=== PATIENT | female | born 1955 | race Caucasian/White ===

== ENCOUNTER 2018-11-03 10:14 | Inpatient (IN) | payer MEDICARE, BC ==
[2018-11-03] MEDS: CEFEPIME 1GM/50 ML (PMX) 50 ML IVPB (11:54)
[2018-11-03] MEDS: SOD CHLORIDE 0.9% 1,000 ML IV (11:54)
[2018-11-03] MEDS: VANCOMYCIN 1 GM (PMX) 250 ML IVPB (12:29)
[2018-11-03 12:37] LABS: ADD MAN DIFF? NO
[2018-11-03 12:42] LABS: BASOPHILS % 0.2 % (0.0-2.0); EOSINOPHILS # 0.2 10^3/ul (0.0-0.5); EOSINOPHILS % 2.4 % (0.0-7.0); HEMATOCRIT 25.7 % (37.0-47.0); HEMOGLOBIN 8.3 g/dl (12.0-16.0); LYMPHOCYTES # 0.8 10^3/ul (0.8-2.9); LYMPHOCYTES % 7.7 % (15.0-51.0); MEAN CORPUSCULAR HGB CONC 32.3 g/dl (32.0-37.0); MEAN CORPUSCULAR VOLUME 99.2 fl (82.0-101.0); MONOCYTE # 0.7 10^3/ul (0.3-0.9); MONOCYTES % 7.1 % (0.0-11.0); NEUTROPHIL # 8.4 10^3/ul (1.6-7.5); NEUTROPHILS % 82.3 % (39.0-77.0); PLATELET COUNT 175 10^3/UL (140-415); RED BLOOD COUNT 2.59 10^6/ul (4.20-5.40)
[2018-11-03 12:42] LABS: WHITE BLOOD COUNT 10.2 10^3/ul (4.8-10.8)
[2018-11-03 12:58] LABS: INR 0.99; PROTIME 13.2 Sec (11.9-14.9)
[2018-11-03] MEDS ORDERED: ACETAMINOPHEN 325 MG TAB PO (13:00)
[2018-11-03] MEDS ORDERED: ONDANSETRON 4 MG INJ IV (13:00)
[2018-11-03 13:01] LABS: ANION GAP 10 (5-13); BLOOD UREA NITROGEN 46 mg/dl (7-20); C-REACTIVE PROTEIN 4.5 mg/dl (0.0-0.9); CALCIUM 8.7 mg/dl (8.4-10.2); CARBON DIOXIDE 15 mmol/L (21-31); CHLORIDE 116 mmol/L (97-110); CREATININE 2.63 mg/dl (0.44-1.00); Estimated GFR 18 mL/min (>60); GLUCOSE 133 mg/dl (70-220); POTASSIUM 4.8 mmol/L (3.5-5.1); SODIUM 141 mmol/L (135-144)
[2018-11-03] MEDS: KETOROLAC 15 MG INJ IV (13:05)
[2018-11-03 13:55] LABS: ERYTHROCYTE SEDIMENTATION RATE 74 mm/Hr (0-30)
[2018-11-03] MEDS ORDERED: GLUCOSE GEL 15 GRAM TUBE BUCCAL (15:30)
[2018-11-03] MEDS ORDERED: NACL 0.9% 3 ML SYG IV (15:30)
[2018-11-03] MEDS ORDERED: DEXTROSE 50% 50 ML SYRINGE IV ×2 (15:30)
[2018-11-03] MEDS ORDERED: VANCOMYCIN IV PER PHARMACY XX (15:30)
[2018-11-03] MEDS ORDERED: GLUCAGON 1 MG INJ IM (15:30)
[2018-11-03] MEDS ORDERED: GLUCOSE GEL 15 GRAM TUBE PO ×2 (15:30)
[2018-11-03 15:44] LABS: IRON 27 ug/dl (35-150)
[2018-11-03 15:54] LABS: % IRON SATURATION 10 % SAT (22-52); TOTAL IRON BINDING CAPACITY 281 ug/dl (241-421)
[2018-11-03 16:20] LABS: FERRITIN 25.8 ng/ml (11.1-264.0)
[2018-11-03] MEDS: CEFTRIAXONE 1 GM/50 ML (PMX) 50 ML IVPB (17:10)
[2018-11-03 17:48] LABS: ADD UMIC YES; UR ASCORBIC ACID NEGATIVE (NEGATIVE); UR BACTERIA FEW /HPF (NONE SEEN); UR BILIRUBIN (Dip) NEGATIVE (NEGATIVE); UR BLOOD (Dip) NEGATIVE (NEGATIVE); UR CLARITY CLEAR (CLEAR); UR COLOR YELLOW (YELLOW); UR GLUCOSE (Dip) 1+ mg/dL (NEGATIVE); UR KETONES (Dip) NEGATIVE (NEGATIVE); UR LEUKOCYTE ESTERASE (Dip) NEGATIVE Leu/ul (NEGATIVE); UR NITRITE (Dip) NEGATIVE (NEGATIVE); UR RBC 1 /HPF (0-5); UR SPECIFIC GRAVITY (Dip) 1.013 (1.003-1.030); UR TOTAL PROTEIN (Dip) 2+ mg/dl (NEGATIVE); UR UROBILINOGEN (Dip) NEGATIVE (NEGATIVE); UR WBC 4 /HPF (0-5)
[2018-11-03 17:54] LABS: CREATININE,URINE RANDOM 54.46 mg/dl (20-320)
[2018-11-03 17:54] LABS: SODIUM,URINE RANDOM 93 mmol/L (30-90)
[2018-11-03] MEDS ORDERED: INSULIN GLARGINE [LANtus] 3 ML PEN SC (21:00)
[2018-11-03] MEDS: INSULIN GLARGINE [LANTus] (100 UNITS/ML) SYG SC (21:15)
[2018-11-03] MEDS: ATORVASTATIN 40 MG TAB PO (21:15)
[2018-11-03] MEDS: AMLODIPINE 10 MG TAB PO (21:47)
[2018-11-03] MEDS: hydrALAzine 20 MG INJ IV (21:48)
[2018-11-03] MEDS: ACETAMINOPHEN 325 MG TAB PO (22:44)
[2018-11-04 06:10] LABS: ADD MAN DIFF? NO
[2018-11-04 06:12] LABS: BASOPHILS % 0.2 % (0.0-2.0); EOSINOPHILS # 0.7 10^3/ul (0.0-0.5); EOSINOPHILS % 8.2 % (0.0-7.0); HEMATOCRIT 22.8 % (37.0-47.0); HEMOGLOBIN 7.3 g/dl (12.0-16.0); LYMPHOCYTES # 1.7 10^3/ul (0.8-2.9); LYMPHOCYTES % 19.8 % (15.0-51.0); MEAN CORPUSCULAR HEMOGLOBIN 32.6 pg (29.0-33.0); MEAN CORPUSCULAR VOLUME 101.8 fl (82.0-101.0); MEAN PLATELET VOLUME 11.3 fl (7.4-10.4); MONOCYTE # 0.8 10^3/ul (0.3-0.9); MONOCYTES % 9.4 % (0.0-11.0); NEUTROPHIL # 5.4 10^3/ul (1.6-7.5); NEUTROPHILS % 61.9 % (39.0-77.0); PLATELET COUNT 155 10^3/UL (140-415); RED BLOOD COUNT 2.24 10^6/ul (4.20-5.40); RED CELL DISTRIBUTION WIDTH 13.1 % (11.5-14.5)
[2018-11-04 06:12] LABS: WHITE BLOOD COUNT 8.7 10^3/ul (4.8-10.8)
[2018-11-04 07:02] LABS: ALANINE AMINOTRANSFERASE 8 IU/L (13-69); ALBUMIN 2.8 g/dl (3.3-4.9); ALBUMIN/GLOBULIN RATIO 1.07; ALKALINE PHOSPHATASE 114 IU/L (42-121); ANION GAP 7 (5-13); ASPARTATE AMINO TRANSFERASE 13 IU/L (15-46); BLOOD UREA NITROGEN 46 mg/dl (7-20); CALCIUM 8.3 mg/dl (8.4-10.2); CARBON DIOXIDE 16 mmol/L (21-31); CHLORIDE 115 mmol/L (97-110); CHOL/HDL RATIO 4.7 RATIO; CHOLESTEROL 257 mg/dl (100-200); CREATININE 3.02 mg/dl (0.44-1.00); Estimated GFR 16 mL/min (>60); GLUCOSE 96 mg/dl (70-220); HDL CHOLESTEROL 54 mg/dl (35-98); LDL CHOLESTEROL,CALCULATED 155 mg/dl; MAGNESIUM 2.4 mg/dl (1.7-2.5); SODIUM 138 mmol/L (135-144); TOTAL PROTEIN 5.4 g/dl (6.1-8.1); TRIGLYCERIDES 238 mg/dl (0-149)
[2018-11-04 08:13] LABS: HEMOGLOBIN A1C 6.5 % (0-5.9)
[2018-11-04] MEDS: AMLODIPINE 10 MG TAB PO ×2 (08:28)
[2018-11-04] MEDS: SODIUM HYPOCHLORITE (1/40) 1 APPLIC BTL IRR (08:34)
[2018-11-04] MEDS ORDERED: LISINOPRIL 20 MG TAB PO (09:00)
[2018-11-04] MEDS: CEFTRIAXONE 1 GM/50 ML (PMX) 50 ML IVPB (15:11)
[2018-11-04] MEDS: INSULIN ASPART [NOVOLOG] 3 ML PEN SC ×2 (17:39→20:35)
[2018-11-04] MEDS: ATORVASTATIN 40 MG TAB PO (20:33)
[2018-11-04] MEDS: INSULIN GLARGINE [LANTus] (100 UNITS/ML) SYG SC (20:35)
[2018-11-04 21:08] LABS: SODIUM,URINE RANDOM 77 mmol/L (30-90)
[2018-11-04 21:12] LABS: CREATININE,URINE RANDOM 62.94 mg/dl (20-320)
[2018-11-04 21:19] LABS: PROTEIN/CREAT RATIO 5.64 RATIO
[2018-11-05] MEDS: ACCU-CHEK XX (01:32)
[2018-11-05 05:26] LABS: ADD MAN DIFF? NO
[2018-11-05 05:35] LABS: BASOPHILS % 0.3 % (0.0-2.0); EOSINOPHILS # 0.8 10^3/ul (0.0-0.5); EOSINOPHILS % 12.9 % (0.0-7.0); HEMATOCRIT 23.2 % (37.0-47.0); HEMOGLOBIN 7.6 g/dl (12.0-16.0); LYMPHOCYTES # 1.5 10^3/ul (0.8-2.9); LYMPHOCYTES % 22.6 % (15.0-51.0); MEAN CORPUSCULAR HEMOGLOBIN 32.8 pg (29.0-33.0); MEAN CORPUSCULAR HGB CONC 32.8 g/dl (32.0-37.0); MEAN PLATELET VOLUME 11.1 fl (7.4-10.4); MONOCYTE # 0.6 10^3/ul (0.3-0.9); MONOCYTES % 9.5 % (0.0-11.0); NEUTROPHIL # 3.5 10^3/ul (1.6-7.5); NEUTROPHILS % 54.5 % (39.0-77.0); PLATELET COUNT 170 10^3/UL (140-415); RED BLOOD COUNT 2.32 10^6/ul (4.20-5.40); RED CELL DISTRIBUTION WIDTH 12.6 % (11.5-14.5)
[2018-11-05 05:35] LABS: WHITE BLOOD COUNT 6.5 10^3/ul (4.8-10.8)
[2018-11-05 05:52] LABS: INR 1.03; PARTIAL THROMBOPLASTIN TIME 32.9 Sec (23.0-35.0); PROTIME 13.6 Sec (11.9-14.9); PT RATIO 1.1
[2018-11-05 05:58] LABS: PHOSPHORUS 5.4 mg/dl (2.5-4.9)
[2018-11-05 05:58] LABS: MAGNESIUM 2.5 mg/dl (1.7-2.5)
[2018-11-05 06:00] LABS: VANCOMYCIN,RANDOM 8.7 ug/ml
[2018-11-05 06:10] LABS: URIC ACID 5.6 mg/dl (3.1-7.9)
[2018-11-05 06:10] LABS: CREATINE KINASE 42 IU/L (23-200)
[2018-11-05 06:21] LABS: ALANINE AMINOTRANSFERASE 12 IU/L (13-69); ALBUMIN 2.8 g/dl (3.3-4.9); ALBUMIN/GLOBULIN RATIO 0.93; ALKALINE PHOSPHATASE 107 IU/L (42-121); ANION GAP 5 (5-13); ASPARTATE AMINO TRANSFERASE 13 IU/L (15-46); BLOOD UREA NITROGEN 46 mg/dl (7-20); CALCIUM 8.5 mg/dl (8.4-10.2); CARBON DIOXIDE 17 mmol/L (21-31); CHLORIDE 119 mmol/L (97-110); CREATININE 3.38 mg/dl (0.44-1.00); Estimated GFR 14 mL/min (>60); GLUCOSE 82 mg/dl (70-220); POTASSIUM 5.4 mmol/L (3.5-5.1); SODIUM 141 mmol/L (135-144); TOTAL PROTEIN 5.8 g/dl (6.1-8.1)
[2018-11-05] MEDS: INSULIN ASPART [NOVOLOG] 3 ML PEN SC ×4 (08:00→21:00)
[2018-11-05] MEDS: AMLODIPINE 10 MG TAB PO (08:28)
[2018-11-05] MEDS: SODIUM HYPOCHLORITE (1/40) 1 APPLIC BTL IRR (09:00)
[2018-11-05] MEDS: VANCOMYCIN 1 GM 250 ML IVPB (12:36)
[2018-11-05] MEDS: CITRIC ACID/NA CITRATE 30 ML CUP PO ×3 (13:47→23:47)
[2018-11-05] MEDS: SODIUM POLYSTYRENE 15 GM KIT (POWDER + SORBITOL) PO (13:47)
[2018-11-05] MEDS: CEFTRIAXONE 1 GM/50 ML (PMX) 50 ML IVPB (15:31)
[2018-11-05] MEDS: POLYMYXIN/BACITRACIN 1L IRRIG IRR (19:26)
[2018-11-05] MEDS ORDERED: ONDANSETRON 4 MG INJ IV (19:30)
[2018-11-05] MEDS ORDERED: MEPERIDINE 25 MG INJ IV (19:30)
[2018-11-05] MEDS ORDERED: HYDROmorphONE 1 MG/5 ML IV SYRINGE IV ×3 (19:30)
[2018-11-05] MEDS ORDERED: DIPHENHYDRAMINE 50 MG INJ IV (19:30)
[2018-11-05] MEDS ORDERED: FENTAnyl 50 MCG/ML VIAL IV (19:30)
[2018-11-05] MEDS ORDERED: PROCHLORPERAZINE 10 MG INJ IV (19:30)
[2018-11-05] MEDS: ATORVASTATIN 40 MG TAB PO ×2 (21:00→23:47)
[2018-11-05] MEDS: INSULIN GLARGINE [LANTus] (100 UNITS/ML) SYG SC ×2 (21:00→23:48)
[2018-11-05] MEDS ORDERED: PROPOFOL 20 ML (21:40)
[2018-11-05] MEDS ORDERED: LIDOCAINE 2% (SDV) 5 ML INJ (21:40)
[2018-11-05] MEDS ORDERED: MIDAZOLAM 1 MG/ML 2 ML INJ (21:41)
[2018-11-05] MEDS ORDERED: FENTAnyl 50 MCG/ML VIAL (21:41)
[2018-11-05] MEDS ORDERED: ONDANSETRON 4 MG INJ (21:57)
[2018-11-05] MEDS ORDERED: METOCLOPRAMIDE 10 MG INJ (21:57)
[2018-11-05] MEDS ORDERED: FAMOTIDINE 20 MG INJ (21:57)
[2018-11-05] MEDS: BUPIVACAINE 0.5% (SDV) 30 ML INJ (22:16)
[2018-11-05] MEDS: LIDOCAINE 1% (MPF) 30 ML INJ (22:17)
[2018-11-06] MEDS: ACCU-CHEK XX (01:22)
[2018-11-06] MEDS: ACETAMINOPHEN 325 MG TAB PO (05:43)
[2018-11-06 06:24] LABS: ADD MAN DIFF? NO
[2018-11-06 06:25] LABS: WHITE BLOOD COUNT 5.7 10^3/ul (4.8-10.8)
[2018-11-06 06:25] LABS: BASOPHILS % 0.4 % (0.0-2.0); EOSINOPHILS # 0.8 10^3/ul (0.0-0.5); EOSINOPHILS % 14.8 % (0.0-7.0); HEMATOCRIT 25.1 % (37.0-47.0); HEMOGLOBIN 8.1 g/dl (12.0-16.0); LYMPHOCYTES # 1.2 10^3/ul (0.8-2.9); LYMPHOCYTES % 21.1 % (15.0-51.0); MEAN CORPUSCULAR HEMOGLOBIN 32.1 pg (29.0-33.0); MEAN CORPUSCULAR HGB CONC 32.3 g/dl (32.0-37.0); MEAN CORPUSCULAR VOLUME 99.6 fl (82.0-101.0); MEAN PLATELET VOLUME 10.7 fl (7.4-10.4); MONOCYTE # 0.5 10^3/ul (0.3-0.9); MONOCYTES % 8.6 % (0.0-11.0); NEUTROPHIL # 3.1 10^3/ul (1.6-7.5); NEUTROPHILS % 54.6 % (39.0-77.0); PLATELET COUNT 178 10^3/UL (140-415); RED BLOOD COUNT 2.52 10^6/ul (4.20-5.40); RED CELL DISTRIBUTION WIDTH 12.6 % (11.5-14.5)
[2018-11-06 06:47] LABS: PHOSPHORUS 6.3 mg/dl (2.5-4.9)
[2018-11-06 06:47] LABS: MAGNESIUM 2.4 mg/dl (1.7-2.5)
[2018-11-06 06:55] LABS: ANION GAP 9 (5-13); BLOOD UREA NITROGEN 51 mg/dl (7-20); CALCIUM 8.4 mg/dl (8.4-10.2); CARBON DIOXIDE 19 mmol/L (21-31); CHLORIDE 114 mmol/L (97-110); CREATININE 2.97 mg/dl (0.44-1.00); Estimated GFR 16 mL/min (>60); GLUCOSE 99 mg/dl (70-220); POTASSIUM 4.5 mmol/L (3.5-5.1); SODIUM 142 mmol/L (135-144)
[2018-11-06] MEDS: INSULIN ASPART [NOVOLOG] 3 ML PEN SC ×4 (08:00→21:00)
[2018-11-06] MEDS: CITRIC ACID/NA CITRATE 30 ML CUP PO ×3 (08:54→21:22)
[2018-11-06] MEDS: AMLODIPINE 10 MG TAB PO (08:54)
[2018-11-06] MEDS: SODIUM HYPOCHLORITE (1/40) 1 APPLIC BTL IRR (08:55)
[2018-11-06] MEDS: LIDOCAINE 1% (MPF) 5 ML VIAL SC (15:30)
[2018-11-06] MEDS: CEFTRIAXONE 1 GM/50 ML (PMX) 50 ML IVPB (17:23)
[2018-11-06 21:03] LABS: PTH CALCIUM 7.9 mg/dL (8.6-10.4)
[2018-11-06] MEDS: ATORVASTATIN 40 MG TAB PO (21:22)
[2018-11-06] MEDS: INSULIN GLARGINE [LANTus] (100 UNITS/ML) SYG SC (21:22)
[2018-11-07] MEDS: ACCU-CHEK XX (02:00)
[2018-11-07 07:11] LABS: ADD MAN DIFF? NO
[2018-11-07 07:20] LABS: WHITE BLOOD COUNT 5.7 10^3/ul (4.8-10.8)
[2018-11-07 07:20] LABS: BASOPHILS % 0.5 % (0.0-2.0); EOSINOPHILS # 0.9 10^3/ul (0.0-0.5); EOSINOPHILS % 15.9 % (0.0-7.0); HEMATOCRIT 22.7 % (37.0-47.0); HEMOGLOBIN 7.4 g/dl (12.0-16.0); LYMPHOCYTES # 1.5 10^3/ul (0.8-2.9); LYMPHOCYTES % 26.7 % (15.0-51.0); MEAN CORPUSCULAR HEMOGLOBIN 32.2 pg (29.0-33.0); MEAN CORPUSCULAR HGB CONC 32.6 g/dl (32.0-37.0); MEAN CORPUSCULAR VOLUME 98.7 fl (82.0-101.0); MEAN PLATELET VOLUME 11.1 fl (7.4-10.4); MONOCYTE # 0.5 10^3/ul (0.3-0.9); MONOCYTES % 9.4 % (0.0-11.0); NEUTROPHIL # 2.7 10^3/ul (1.6-7.5); NEUTROPHILS % 46.8 % (39.0-77.0); PLATELET COUNT 184 10^3/UL (140-415); RED CELL DISTRIBUTION WIDTH 12.5 % (11.5-14.5)
[2018-11-07 07:47] LABS: ANION GAP 6 (5-13); BLOOD UREA NITROGEN 51 mg/dl (7-20); CALCIUM 8.3 mg/dl (8.4-10.2); CARBON DIOXIDE 22 mmol/L (21-31); CHLORIDE 112 mmol/L (97-110); CREATININE 3.01 mg/dl (0.44-1.00); Estimated GFR 16 mL/min (>60); GLUCOSE 94 mg/dl (70-220); POTASSIUM 4.4 mmol/L (3.5-5.1); SODIUM 140 mmol/L (135-144)
[2018-11-07 07:51] LABS: PTH INTACT 150 pg/mL (14-64)
[2018-11-07] MEDS: INSULIN ASPART [NOVOLOG] 3 ML PEN SC ×3 (08:00→17:34)
[2018-11-07] MEDS: CITRIC ACID/NA CITRATE 30 ML CUP PO ×2 (08:15→12:15)
[2018-11-07] MEDS: SODIUM HYPOCHLORITE (1/40) 1 APPLIC BTL IRR (08:16)
[2018-11-07] MEDS: AMLODIPINE 10 MG TAB PO (08:16)
[2018-11-07 11:00] LABS: HEMATOCRIT 24.5 % (37.0-47.0); HEMOGLOBIN 7.9 g/dl (12.0-16.0)
[2018-11-07] MEDS: LEVOFLOXACIN 500 MG TAB PO (12:01)
[2018-11-07] MEDS: VANCOMYCIN 1 GM 250 ML IVPB (12:02)
== END 2018-11-07 19:00 | disposition home health service (06) | DRG 579 ==
LOC: E/R 10:14 → PP2 12:54
PROC: 0JQQ0ZZ Repair Right Foot Subcutaneous Tissue and Fascia, Open Approach (ICD-10-PCS; principal; 2018-11-05 19:30)
PROC: 0QBQ0ZZ Excision of Right Toe Phalanx, Open Approach (ICD-10-PCS; 2018-11-05 19:30)
DX: L03.115 Cellulitis of right lower limb (principal); N17.0 Acute kidney failure with tubular necrosis; M86.8X7 Other osteomyelitis, ankle and foot; E87.2 Acidosis; L02.611 Cutaneous abscess of right foot; E11.621 Type 2 diabetes mellitus with foot ulcer; E11.69 Type 2 diabetes mellitus with other specified complication; L97.511 Non-pressure chronic ulcer of other part of right foot limited to breakdown of skin; E78.5 Hyperlipidemia, unspecified; D64.9 Anemia, unspecified; E11.40 Type 2 diabetes mellitus with diabetic neuropathy, unspecified; I12.9 Hypertensive chronic kidney disease with stage 1 through stage 4 chronic kidney disease, or unspecified chronic kidney disease; N18.9 Chronic kidney disease, unspecified; L03.031 Cellulitis of right toe; B95.8 Unspecified staphylococcus as the cause of diseases classified elsewhere; B96.20 Unspecified Escherichia coli [E. coli] as the cause of diseases classified elsewhere; B95.2 Enterococcus as the cause of diseases classified elsewhere; B95.7 Other staphylococcus as the cause of diseases classified elsewhere
CPT/HCPCS: 36415; 36569; 71045; 73630; 73718; 76775; 76937; 80048; 80053; 80061; 80202; 81001; 81003; 82306; 82540; 82550; 82570; 82728; 82962; 83036; 83540; 83735; 83970; 84100; 84155; 84300; 84560; 85014; 85018; 85025; 85610; 85651; 85730; 86140; 86850; 86900; 86901; 87040; 87070; 87102; 88304; 88311; 89190; 93005; 93923; 96365; 99285-25

== ENCOUNTER 2018-11-20 10:04 | Inpatient (IN) | payer MEDICARE, MEDICAID ==
[2018-11-20] MEDS: CEFEPIME 1GM/50 ML (PMX) 50 ML IVPB (11:03)
[2018-11-20 11:05] LABS: ADD MAN DIFF? NO
[2018-11-20 11:10] LABS: WHITE BLOOD COUNT 6.4 10^3/ul (4.8-10.8)
[2018-11-20 11:10] LABS: ABNORMAL IP MESSAGE 1; BASOPHILS % 0.2 % (0.0-2.0); EOSINOPHILS # 0.1 10^3/ul (0.0-0.5); EOSINOPHILS % 1.6 % (0.0-7.0); LYMPHOCYTES # 0.5 10^3/ul (0.8-2.9); LYMPHOCYTES % 8.3 % (15.0-51.0); MEAN CORPUSCULAR HEMOGLOBIN 31.5 pg (29.0-33.0); MEAN CORPUSCULAR HGB CONC 31.5 g/dl (32.0-37.0); MEAN PLATELET VOLUME 11.2 fl (7.4-10.4); MONOCYTE # 0.5 10^3/ul (0.3-0.9); MONOCYTES % 7.4 % (0.0-11.0); NEUTROPHIL # 5.2 10^3/ul (1.6-7.5); NEUTROPHILS % 81.9 % (39.0-77.0); PLATELET COUNT 158 10^3/UL (140-415); RED CELL DISTRIBUTION WIDTH 12.7 % (11.5-14.5)
[2018-11-20 11:18] LABS: POSITIVE DIFF @See below
[2018-11-20 11:19] LABS: HEMOGLOBIN 6.3 g/dl (12.0-16.0)
[2018-11-20 11:20] LABS: PATH REVIEW? YES
[2018-11-20 11:30] LABS: ALANINE AMINOTRANSFERASE 29 IU/L (13-69); ALBUMIN 3.3 g/dl (3.3-4.9); ALKALINE PHOSPHATASE 159 IU/L (42-121); ANION GAP 12 (5-13); ASPARTATE AMINO TRANSFERASE 25 IU/L (15-46); BILIRUBIN,INDIRECT 0.1 mg/dl (0-1.1); BILIRUBIN,TOTAL 0.1 mg/dl (0.2-1.3); BLOOD UREA NITROGEN 46 mg/dl (7-20); CALCIUM 8.3 mg/dl (8.4-10.2); CARBON DIOXIDE 17 mmol/L (21-31); CHLORIDE 111 mmol/L (97-110); CREATININE 3.41 mg/dl (0.44-1.00); Estimated GFR 14 mL/min (>60); GLUCOSE 192 mg/dl (70-220); POTASSIUM 4.7 mmol/L (3.5-5.1); SODIUM 140 mmol/L (135-144); TOTAL PROTEIN 6.3 g/dl (6.1-8.1)
[2018-11-20] MEDS: HYDROCODONE/APAP (10/325) TAB PO (11:38)
[2018-11-20] MEDS: VANCOMYCIN 1 GM (PMX) 250 ML IVPB (11:39)
[2018-11-20 11:42] LABS: TROPONIN-I 0.088 ng/ml (0.000-0.120)
[2018-11-20 11:47] LABS: INR 1.06; PROTIME 13.9 Sec (11.9-14.9); PT RATIO 1.1
[2018-11-20 11:48] LABS: PARTIAL THROMBOPLASTIN TIME 38.4 Sec (23.0-35.0)
[2018-11-20 11:50] LABS: D-DIMER 2024.68 ng/ml (<460)
[2018-11-20 11:55] LABS: BAND NEUTROPHILS #M 0.1 10^3/ul (0.0-0.6); BAND NEUTROPHILS % (M) 2 % (0-4); EOSINOPHILS % (M) 1 % (0-7); GIANT THROMBO% (M) 1 % (0-0); HYPOCHROMASIA 1+ (0-0); LYMPHOCYTES #M 0.5 10^3/ul (0.8-2.9); LYMPHOCYTES % (M) 9 % (15-51); MONOCYTE #M 0.1 10^3/ul (0.3-0.9); MONOCYTES % (M) 2 % (0-11); PLATELET ESTIMATE NORMAL; POIKILOCYTOSIS 1+ (0-0); POLYCHROMASIA 1+ (0-0); SEG NEUT #M 5.5 10^3/ul (1.6-7.5); SEGMENTED NEUTROPHILS (M) % 86 % (39-77)
[2018-11-20 12:25] LABS: AADO2 Arterial 199.3 mmHg (7.0-24.0); Arterial Base Excess -8.9 mmol/L (-3.0-3); Arterial Blood Gas Oxygen Sat 62.6 mmHG (95.0-98.0); Arterial COHb 0.5 % (0.0-3.0); Arterial HCO3 16.9 mmol/L (22.0-26.0); Arterial MetHb 0.5 % (0.0-1.5); Arterial pCO2 36.2 mmhg (35-45); MODE NASAL CANNULA; Site LB
[2018-11-20 12:30] LABS: B-TYPE NATRIURETIC PEPTIDE 9030 PG/ML (0-125)
[2018-11-20] MEDS ORDERED: GUAIFENESIN/CODEINE 5ML CUP PO (12:30)
[2018-11-20] MEDS ORDERED: morphine 2 MG INJ IV (12:30)
[2018-11-20] MEDS ORDERED: NACL 0.9% 3 ML SYG IV (12:30)
[2018-11-20] MEDS ORDERED: VANCOMYCIN IV PER PHARMACY XX (12:30)
[2018-11-20] MEDS ORDERED: ACETAMINOPHEN 325 MG TAB PO ×2 (12:30→13:30)
[2018-11-20] MEDS ORDERED: ALBUTEROL/IPRATROPIUM (NEB) 3 ML AMP HHN (12:30)
[2018-11-20] MEDS ORDERED: GLUCOSE GEL 15 GRAM TUBE BUCCAL (13:30)
[2018-11-20] MEDS ORDERED: GLUCOSE GEL 15 GRAM TUBE PO ×2 (13:30)
[2018-11-20] MEDS ORDERED: GLUCAGON 1 MG INJ IM (13:30)
[2018-11-20] MEDS ORDERED: DEXTROSE 50% 50 ML SYRINGE IV ×2 (13:30)
[2018-11-20] MEDS ORDERED: ONDANSETRON 4 MG INJ IV (13:30)
[2018-11-20 13:33] LABS: RETICULOCYTE COUNT # 0.031 X10^6 (0.020-0.110); RETICULOCYTE COUNT % 1.6 % (0.5-1.5)
[2018-11-20] MEDS: METHYLPREDNISOLONE 125 MG INJ IV (13:42)
[2018-11-20] MEDS: PIPER-TAZO 3.375 GM IV (PMX) 100 ML IVPB (13:42)
[2018-11-20] MEDS: FUROSEMIDE 20 MG INJ IV ×2 (15:36→17:23)
[2018-11-20] MEDS: INSULIN ASPART [NOVOLOG] 3 ML PEN SC ×2 (17:25→23:18)
[2018-11-20 18:05] LABS: LACTATE DEHYDROGENASE 643 IU/L (313-618)
[2018-11-20 18:05] LABS: IRON 27 ug/dl (35-150)
[2018-11-20 18:06] LABS: LACTIC ACID 0.8 mmol/L (0.5-2.0)
[2018-11-20 18:14] LABS: % IRON SATURATION 10 % SAT (22-52); TOTAL IRON BINDING CAPACITY 271 ug/dl (241-421)
[2018-11-20] MEDS: ALBUTEROL/IPRATROPIUM (NEB) 3 ML AMP HHN ×2 (19:42→19:43)
[2018-11-20] MEDS: BUDESONIDE (NEB) 0.5MG/2ML AMP HHN (19:43)
[2018-11-20] MEDS: ATORVASTATIN 40 MG TAB PO (20:59)
[2018-11-20] MEDS: METHYLPREDNISOLONE 40 MG INJ IV (20:59)
[2018-11-20] MEDS ORDERED: METHYLPREDNISOLONE 40 MG INJ IV (21:00)
[2018-11-20] MEDS: INSULIN GLARGINE [LANTus] (100 UNITS/ML) SYG SC (21:06)
[2018-11-20] MEDS: SOD CHLORIDE 0.9% 0 ML IV (22:45)
[2018-11-20] MEDS: PIPER-TAZO 2.25 GM (PMX) 50 ML IVPB (23:10)
[2018-11-20 23:36] LABS: IMMEDIATE SPIN CROSSMATCH 1 2
[2018-11-21] MEDS: HYDROCODONE/APAP (5/325) TAB PO ×2 (02:37→23:02)
[2018-11-21] MEDS: ACCU-CHEK XX (02:38)
[2018-11-21 02:57] LABS: ADD UMIC YES; UR ASCORBIC ACID NEGATIVE (NEGATIVE); UR BACTERIA FEW /HPF (NONE SEEN); UR BILIRUBIN (Dip) NEGATIVE (NEGATIVE); UR BLOOD (Dip) NEGATIVE (NEGATIVE); UR CLARITY CLOUDY (CLEAR); UR COLOR YELLOW (YELLOW); UR GLUCOSE (Dip) 1+ mg/dL (NEGATIVE); UR KETONES (Dip) NEGATIVE (NEGATIVE); UR LEUKOCYTE ESTERASE (Dip) NEGATIVE Leu/ul (NEGATIVE); UR NITRITE (Dip) NEGATIVE (NEGATIVE); UR RBC 0 /HPF (0-5); UR SPECIFIC GRAVITY (Dip) 1.012 (1.003-1.030); UR SQUAMOUS EPITHELIAL CELL FEW /HPF (FEW); UR TOTAL PROTEIN (Dip) 2+ mg/dl (NEGATIVE); UR UROBILINOGEN (Dip) NEGATIVE (NEGATIVE); UR WBC 1 /HPF (0-5)
[2018-11-21 03:01] LABS: SODIUM,URINE RANDOM 71 mmol/L (30-90)
[2018-11-21 03:03] LABS: CREATININE,URINE RANDOM 63.47 mg/dl (20-320)
[2018-11-21 03:16] LABS: PROTEIN/CREAT RATIO 4.15 RATIO
[2018-11-21] MEDS: INSULIN ASPART [NOVOLOG] 3 ML PEN SC ×5 (04:24→21:55)
[2018-11-21] MEDS: PIPER-TAZO 2.25 GM (PMX) 50 ML IVPB ×3 (05:03→22:40)
[2018-11-21] MEDS: FUROSEMIDE 20 MG INJ IV ×2 (05:04→17:25)
[2018-11-21 05:59] LABS: ADD MAN DIFF? NO
[2018-11-21 06:11] LABS: ABNORMAL IP MESSAGE 1; BASOPHILS % 0.2 % (0.0-2.0); HEMATOCRIT 26.3 % (37.0-47.0); HEMOGLOBIN 8.5 g/dl (12.0-16.0); LYMPHOCYTES # 0.3 10^3/ul (0.8-2.9); LYMPHOCYTES % 2.4 % (15.0-51.0); MEAN CORPUSCULAR HGB CONC 32.3 g/dl (32.0-37.0); MEAN PLATELET VOLUME 11.4 fl (7.4-10.4); MONOCYTE # 0.4 10^3/ul (0.3-0.9); MONOCYTES % 3.3 % (0.0-11.0); NEUTROPHIL # 10.6 10^3/ul (1.6-7.5); NEUTROPHILS % 93.5 % (39.0-77.0); PLATELET COUNT 149 10^3/UL (140-415); RED BLOOD COUNT 2.74 10^6/ul (4.20-5.40); RED CELL DISTRIBUTION WIDTH 13.4 % (11.5-14.5)
[2018-11-21 06:11] LABS: WHITE BLOOD COUNT 11.4 10^3/ul (4.8-10.8)
[2018-11-21 06:19] LABS: POSITIVE DIFF @See below
[2018-11-21 06:30] LABS: HEMOGLOBIN A1C 6.1 % (0-5.9)
[2018-11-21 07:39] LABS: ALANINE AMINOTRANSFERASE 23 IU/L (13-69); ALBUMIN 3.3 g/dl (3.3-4.9); ALKALINE PHOSPHATASE 133 IU/L (42-121); ANION GAP 13 (5-13); ASPARTATE AMINO TRANSFERASE 24 IU/L (15-46); BLOOD UREA NITROGEN 52 mg/dl (7-20); CALCIUM 8.7 mg/dl (8.4-10.2); CARBON DIOXIDE 16 mmol/L (21-31); CHLORIDE 109 mmol/L (97-110); CREATININE 3.72 mg/dl (0.44-1.00); Estimated GFR 12 mL/min (>60); GLUCOSE 242 mg/dl (70-220); MAGNESIUM 2.2 mg/dl (1.7-2.5); POTASSIUM 4.7 mmol/L (3.5-5.1); SODIUM 138 mmol/L (135-144); TOTAL PROTEIN 6.3 g/dl (6.1-8.1)
[2018-11-21] MEDS: ALBUTEROL/IPRATROPIUM (NEB) 3 ML AMP HHN ×3 (07:45→19:29)
[2018-11-21] MEDS: BUDESONIDE (NEB) 0.5MG/2ML AMP HHN ×2 (07:46→19:30)
[2018-11-21 08:37] LABS: AADO2 Arterial 359.3 mmHg (7.0-24.0); Arterial Base Excess -9.1 mmol/L (-3.0-3); Arterial Blood Gas Oxygen Sat 93.1 mmHG (95.0-98.0); Arterial COHb 0.3 % (0.0-3.0); Arterial Fraction of Oxyhgb 92.7 % (93.0-99.0); Arterial HCO3 15.6 mmol/L (22.0-26.0); Arterial MetHb 0.1 % (0.0-1.5); Arterial pCO2 29.5 mmhg (35-45); MODE HFNC; Site LB
[2018-11-21] MEDS: METHYLPREDNISOLONE 40 MG INJ IV ×2 (08:46→21:21)
[2018-11-21] MEDS: AMLODIPINE 10 MG TAB PO (08:47)
[2018-11-21 09:09] LABS: LACTIC ACID 1.3 mmol/L (0.5-2.0)
[2018-11-21 09:25] LABS: BILIRUBIN,INDIRECT 0.1 mg/dl (0-1.1); BILIRUBIN,TOTAL 0.1 mg/dl (0.2-1.3)
[2018-11-21] MEDS: CITRIC ACID/NA CITRATE 30 ML CUP PO ×2 (10:44→21:20)
[2018-11-21] MEDS: ONDANSETRON 4 MG INJ IV (11:22)
[2018-11-21 11:39] LABS: VANCOMYCIN,RANDOM 31.1 ug/ml
[2018-11-21] MEDS: FERROUS SULFATE (EC) 325 MG TAB PO ×2 (12:44→21:20)
[2018-11-21] MEDS: DOCUSATE SODIUM 100 MG CAP PO ×2 (12:44→21:21)
[2018-11-21] MEDS: ATORVASTATIN 40 MG TAB PO (21:20)
[2018-11-21] MEDS: ZYVOX 600 MG TAB PO (21:20)
[2018-11-21] MEDS: MEROPENEM 500MG/50 ML (PMX) 50 ML IVPB (21:21)
[2018-11-21] MEDS: INSULIN GLARGINE [LANTus] (100 UNITS/ML) SYG SC (21:55)
[2018-11-21] MEDS ORDERED: VANCOMYCIN 1 GM in 250 ML IVPB (23:00)
[2018-11-22] MEDS: ACCU-CHEK XX (02:40)
[2018-11-22] MEDS: PIPER-TAZO 2.25 GM (PMX) 50 ML IVPB ×2 (05:31→14:38)
[2018-11-22] MEDS: FUROSEMIDE 20 MG INJ IV (05:31)
[2018-11-22 06:21] LABS: ADD MAN DIFF? NO
[2018-11-22 06:26] LABS: ABNORMAL IP MESSAGE 1; BASOPHILS % 0.2 % (0.0-2.0); HEMATOCRIT 26.4 % (37.0-47.0); HEMOGLOBIN 8.6 g/dl (12.0-16.0); LYMPHOCYTES # 0.5 10^3/ul (0.8-2.9); LYMPHOCYTES % 4.5 % (15.0-51.0); MEAN CORPUSCULAR HEMOGLOBIN 30.9 pg (29.0-33.0); MEAN CORPUSCULAR HGB CONC 32.6 g/dl (32.0-37.0); MEAN PLATELET VOLUME 11.1 fl (7.4-10.4); MONOCYTE # 0.2 10^3/ul (0.3-0.9); NEUTROPHIL # 10.4 10^3/ul (1.6-7.5); NEUTROPHILS % 92.4 % (39.0-77.0); PLATELET COUNT 167 10^3/UL (140-415); RED BLOOD COUNT 2.78 10^6/ul (4.20-5.40); RED CELL DISTRIBUTION WIDTH 13.4 % (11.5-14.5)
[2018-11-22 06:26] LABS: WHITE BLOOD COUNT 11.2 10^3/ul (4.8-10.8)
[2018-11-22 06:27] LABS: POSITIVE DIFF @See below
[2018-11-22 06:44] LABS: ANION GAP 13 (5-13); BLOOD UREA NITROGEN 65 mg/dl (7-20); CALCIUM 8.4 mg/dl (8.4-10.2); CARBON DIOXIDE 19 mmol/L (21-31); CHLORIDE 107 mmol/L (97-110); CREATININE 4.22 mg/dl (0.44-1.00); Estimated GFR 11 mL/min (>60); GLUCOSE 186 mg/dl (70-220); MAGNESIUM 2.3 mg/dl (1.7-2.5); PHOSPHORUS 6.7 mg/dl (2.5-4.9); SODIUM 139 mmol/L (135-144)
[2018-11-22] MEDS: INSULIN ASPART [NOVOLOG] 3 ML PEN SC ×5 (07:25→21:01)
[2018-11-22] MEDS: ALBUTEROL/IPRATROPIUM (NEB) 3 ML AMP HHN ×3 (08:10→20:31)
[2018-11-22] MEDS: FERROUS SULFATE (EC) 325 MG TAB PO ×2 (08:54→20:50)
[2018-11-22] MEDS: AMLODIPINE 10 MG TAB PO (08:55)
[2018-11-22] MEDS: DOCUSATE SODIUM 100 MG CAP PO ×2 (08:55→20:50)
[2018-11-22] MEDS: ZYVOX 600 MG TAB PO ×2 (08:55→20:50)
[2018-11-22] MEDS: CITRIC ACID/NA CITRATE 30 ML CUP PO ×2 (08:57→20:50)
[2018-11-22] MEDS: METHYLPREDNISOLONE 40 MG INJ IV (08:58)
[2018-11-22] MEDS: MEROPENEM 500MG/50 ML (PMX) 50 ML IVPB ×2 (09:01→22:39)
[2018-11-22 10:22] LABS: HAPTOGLOBIN 322 mg/dL (43-212)
[2018-11-22] MEDS: BUDESONIDE (NEB) 0.5MG/2ML AMP HHN ×2 (10:28→20:31)
[2018-11-22] MEDS: ALBUMIN HUMAN 25% 100 ML IV (10:53)
[2018-11-22 11:08] LABS: NIL 0.01 IU/mL; QUANTIFERON(R)-TB GOLD INDETERMINATE (NEGATIVE)
[2018-11-22] MEDS: INSULIN GLARGINE [LANTus] (100 UNITS/ML) SYG SC ×2 (11:46→21:01)
[2018-11-22 12:43] LABS: MYELOPEROXIDASE ANTIBODY <1.0 AI; PROTEINASE-3 ANTIBODY <1.0 AI
[2018-11-22 13:27] LABS: ANA SCREEN NEGATIVE (NEGATIVE)
[2018-11-22 14:17] LABS: ANCA SCREEN NEGATIVE (NEGATIVE)
[2018-11-22] MEDS: ATORVASTATIN 40 MG TAB PO (20:50)
[2018-11-23] MEDS: ACCU-CHEK XX (02:38)
[2018-11-23 05:40] LABS: ADD MAN DIFF? NO
[2018-11-23 05:43] LABS: BASOPHILS % 0.1 % (0.0-2.0); HEMATOCRIT 26.4 % (37.0-47.0); HEMOGLOBIN 8.6 g/dl (12.0-16.0); LYMPHOCYTES # 1.3 10^3/ul (0.8-2.9); LYMPHOCYTES % 10.6 % (15.0-51.0); MEAN CORPUSCULAR HEMOGLOBIN 30.4 pg (29.0-33.0); MEAN CORPUSCULAR HGB CONC 32.6 g/dl (32.0-37.0); MEAN CORPUSCULAR VOLUME 93.3 fl (82.0-101.0); MEAN PLATELET VOLUME 10.7 fl (7.4-10.4); MONOCYTE # 0.9 10^3/ul (0.3-0.9); MONOCYTES % 7.2 % (0.0-11.0); NEUTROPHIL # 9.9 10^3/ul (1.6-7.5); PLATELET COUNT 179 10^3/UL (140-415); RED BLOOD COUNT 2.83 10^6/ul (4.20-5.40); RED CELL DISTRIBUTION WIDTH 13.4 % (11.5-14.5)
[2018-11-23 05:43] LABS: WHITE BLOOD COUNT 12.2 10^3/ul (4.8-10.8)
[2018-11-23 06:04] LABS: ANION GAP 14 (5-13); BLOOD UREA NITROGEN 77 mg/dl (7-20); CALCIUM 7.9 mg/dl (8.4-10.2); CARBON DIOXIDE 20 mmol/L (21-31); CHLORIDE 106 mmol/L (97-110); CREATININE 4.46 mg/dl (0.44-1.00); Estimated GFR 10 mL/min (>60); GLUCOSE 107 mg/dl (70-220); MAGNESIUM 2.3 mg/dl (1.7-2.5); PHOSPHORUS 6.1 mg/dl (2.5-4.9); POTASSIUM 4.4 mmol/L (3.5-5.1); SODIUM 140 mmol/L (135-144)
[2018-11-23] MEDS: INSULIN ASPART [NOVOLOG] 3 ML PEN SC ×4 (08:00→20:26)
[2018-11-23] MEDS: MEROPENEM 500MG/50 ML (PMX) 50 ML IVPB ×2 (08:23→20:47)
[2018-11-23] MEDS: METHYLPREDNISOLONE 40 MG INJ IV (08:24)
[2018-11-23] MEDS: CITRIC ACID/NA CITRATE 30 ML CUP PO ×2 (08:24→20:20)
[2018-11-23] MEDS: ZYVOX 600 MG TAB PO ×2 (08:25→20:20)
[2018-11-23] MEDS: DOCUSATE SODIUM 100 MG CAP PO ×2 (08:25→20:20)
[2018-11-23] MEDS: FERROUS SULFATE (EC) 325 MG TAB PO ×2 (08:25→20:20)
[2018-11-23] MEDS: AMLODIPINE 10 MG TAB PO (08:26)
[2018-11-23] MEDS: INSULIN GLARGINE [LANTus] (100 UNITS/ML) SYG SC ×2 (08:41→20:37)
[2018-11-23] MEDS: ALBUTEROL/IPRATROPIUM (NEB) 3 ML AMP HHN ×3 (09:17→19:58)
[2018-11-23] MEDS: BUDESONIDE (NEB) 0.5MG/2ML AMP HHN ×2 (09:26→20:00)
[2018-11-23] MEDS: SOD FERRIC GLUC COMPLX 125 MG in SOD CHLORIDE 0.9% 100 ML IVPB (13:57)
[2018-11-23] MEDS: EPOETIN 4000 UNITS/ML (NON ESRD/NON ONCOLOGY) SC (17:14)
[2018-11-23] MEDS: ATORVASTATIN 40 MG TAB PO (20:19)
[2018-11-24] MEDS: ACCU-CHEK XX (02:00)
[2018-11-24] MEDS: ONDANSETRON 4 MG INJ IV ×2 (04:17→23:46)
[2018-11-24 05:55] LABS: ADD MAN DIFF? NO
[2018-11-24 05:58] LABS: HAAIG REFLEX REFLEX FILED
[2018-11-24 06:03] LABS: WHITE BLOOD COUNT 11.2 10^3/ul (4.8-10.8)
[2018-11-24 06:03] LABS: BASOPHILS % 0.2 % (0.0-2.0); EOSINOPHILS # 0.2 10^3/ul (0.0-0.5); EOSINOPHILS % 1.4 % (0.0-7.0); HEMATOCRIT 30.5 % (37.0-47.0); HEMOGLOBIN 9.9 g/dl (12.0-16.0); LYMPHOCYTES # 1.8 10^3/ul (0.8-2.9); LYMPHOCYTES % 16.4 % (15.0-51.0); MEAN CORPUSCULAR HEMOGLOBIN 29.8 pg (29.0-33.0); MEAN CORPUSCULAR HGB CONC 32.5 g/dl (32.0-37.0); MEAN CORPUSCULAR VOLUME 91.9 fl (82.0-101.0); MEAN PLATELET VOLUME 10.6 fl (7.4-10.4); MONOCYTE # 1.1 10^3/ul (0.3-0.9); MONOCYTES % 9.7 % (0.0-11.0); NEUTROPHIL # 7.9 10^3/ul (1.6-7.5); NEUTROPHILS % 70.3 % (39.0-77.0); PLATELET COUNT 196 10^3/UL (140-415); RED BLOOD COUNT 3.32 10^6/ul (4.20-5.40); RED CELL DISTRIBUTION WIDTH 13.2 % (11.5-14.5)
[2018-11-24 06:24] LABS: ANION GAP 13 (5-13); BLOOD UREA NITROGEN 77 mg/dl (7-20); CALCIUM 7.9 mg/dl (8.4-10.2); CARBON DIOXIDE 22 mmol/L (21-31); CHLORIDE 107 mmol/L (97-110); CREATININE 4.37 mg/dl (0.44-1.00); Estimated GFR 10 mL/min (>60); GLUCOSE 80 mg/dl (70-220); MAGNESIUM 2.4 mg/dl (1.7-2.5); PHOSPHORUS 5.3 mg/dl (2.5-4.9); POTASSIUM 4.2 mmol/L (3.5-5.1); SODIUM 142 mmol/L (135-144)
[2018-11-24 06:55] LABS: HEPATITIS B SURFACE ANTIGEN NEGATIVE (NEGATIVE)
[2018-11-24 07:13] LABS: HEPATITIS B CORE ANTIBODY NEGATIVE (NEGATIVE); HEPATITIS C VIRAL ANTIBODY NEGATIVE (NEGATIVE); HIV 1&2 ANTIBODY NEGATIVE (NEGATIVE)
[2018-11-24] MEDS: INSULIN GLARGINE [LANTus] (100 UNITS/ML) SYG SC (08:00)
[2018-11-24] MEDS: INSULIN ASPART [NOVOLOG] 3 ML PEN SC ×4 (08:00→21:00)
[2018-11-24] MEDS: ALBUTEROL/IPRATROPIUM (NEB) 3 ML AMP HHN ×3 (08:30→20:01)
[2018-11-24] MEDS: MEROPENEM 500MG/50 ML (PMX) 50 ML IVPB ×2 (09:00→20:58)
[2018-11-24] MEDS: DOCUSATE SODIUM 100 MG CAP PO ×2 (09:00→20:59)
[2018-11-24] MEDS: CITRIC ACID/NA CITRATE 30 ML CUP PO ×2 (09:50→20:59)
[2018-11-24] MEDS: FERROUS SULFATE (EC) 325 MG TAB PO ×2 (09:50→20:59)
[2018-11-24] MEDS: ZYVOX 600 MG TAB PO ×2 (09:50→20:59)
[2018-11-24] MEDS: BUDESONIDE (NEB) 0.5MG/2ML AMP HHN ×2 (10:34→20:01)
[2018-11-24] MEDS: predniSONE 20 MG TAB PO (11:49)
[2018-11-24] MEDS: SOD FERRIC GLUC COMPLX 125 MG in SOD CHLORIDE 0.9% 100 ML IVPB (13:42)
[2018-11-24 14:12] LABS: PROCALCITONIN 0.19 ng/mL (<0.10)
[2018-11-24] MEDS: LABETALOL HCL 20MG INJ IV (15:38)
[2018-11-24] MEDS: hydrALAzine 20 MG INJ IV (18:18)
[2018-11-24] MEDS: ATORVASTATIN 40 MG TAB PO (20:59)
[2018-11-25] MEDS: ACCU-CHEK XX (02:00)
[2018-11-25] MEDS: hydrALAzine 20 MG INJ IV ×2 (03:21→17:14)
[2018-11-25 06:24] LABS: ADD MAN DIFF? NO
[2018-11-25 06:34] LABS: WHITE BLOOD COUNT 7.1 10^3/ul (4.8-10.8)
[2018-11-25 06:34] LABS: BASOPHILS % 0.6 % (0.0-2.0); EOSINOPHILS % 0.1 % (0.0-7.0); HEMATOCRIT 30.9 % (37.0-47.0); LYMPHOCYTES # 0.7 10^3/ul (0.8-2.9); LYMPHOCYTES % 9.1 % (15.0-51.0); MEAN CORPUSCULAR HEMOGLOBIN 30.7 pg (29.0-33.0); MEAN CORPUSCULAR HGB CONC 32.4 g/dl (32.0-37.0); MEAN CORPUSCULAR VOLUME 94.8 fl (82.0-101.0); MEAN PLATELET VOLUME 10.9 fl (7.4-10.4); MONOCYTE # 0.5 10^3/ul (0.3-0.9); MONOCYTES % 6.3 % (0.0-11.0); NEUTROPHIL # 5.6 10^3/ul (1.6-7.5); PLATELET COUNT 199 10^3/UL (140-415); RED BLOOD COUNT 3.26 10^6/ul (4.20-5.40); RED CELL DISTRIBUTION WIDTH 13.1 % (11.5-14.5)
[2018-11-25 07:26] LABS: ANION GAP 12 (5-13); BLOOD UREA NITROGEN 71 mg/dl (7-20); CALCIUM 7.9 mg/dl (8.4-10.2); CARBON DIOXIDE 21 mmol/L (21-31); CHLORIDE 106 mmol/L (97-110); CREATININE 3.97 mg/dl (0.44-1.00); Estimated GFR 11 mL/min (>60); GLUCOSE 130 mg/dl (70-220); MAGNESIUM 2.4 mg/dl (1.7-2.5); PHOSPHORUS 5.6 mg/dl (2.5-4.9); POTASSIUM 4.9 mmol/L (3.5-5.1); SODIUM 139 mmol/L (135-144)
[2018-11-25] MEDS: INSULIN ASPART [NOVOLOG] 3 ML PEN SC ×4 (08:00→21:27)
[2018-11-25] MEDS: BUDESONIDE (NEB) 0.5MG/2ML AMP HHN ×2 (08:11→21:51)
[2018-11-25] MEDS: ALBUTEROL/IPRATROPIUM (NEB) 3 ML AMP HHN ×3 (08:11→21:51)
[2018-11-25] MEDS: CITRIC ACID/NA CITRATE 30 ML CUP PO ×2 (09:49→21:05)
[2018-11-25] MEDS: ZYVOX 600 MG TAB PO ×2 (09:49→21:05)
[2018-11-25] MEDS: FERROUS SULFATE (EC) 325 MG TAB PO ×2 (09:49→21:05)
[2018-11-25] MEDS: predniSONE 20 MG TAB PO (09:49)
[2018-11-25] MEDS: DOCUSATE SODIUM 100 MG CAP PO ×2 (09:49→21:05)
[2018-11-25] MEDS: MEROPENEM 500MG/50 ML (PMX) 50 ML IVPB ×2 (10:00→21:06)
[2018-11-25] MEDS: INSULIN GLARGINE [LANTus] (100 UNITS/ML) SYG SC (10:29)
[2018-11-25] MEDS: ONDANSETRON 4 MG INJ IV ×2 (12:01→22:18)
[2018-11-25] MEDS ORDERED: ALBUMIN HUMAN 25% 100 ML IV (13:00)
[2018-11-25] MEDS ORDERED: SODIUM CHLORIDE 0.9% 1L BAG IV (13:00)
[2018-11-25] MEDS: SOD FERRIC GLUC COMPLX 125 MG in SOD CHLORIDE 0.9% 100 ML IVPB (13:16)
[2018-11-25 20:57] LABS: AADO2 Arterial 178.4 mmHg (7.0-24.0); Arterial Blood Gas Oxygen Sat 90.7 mmHG (95.0-98.0); Arterial COHb 0.1 % (0.0-3.0); Arterial Fraction of Oxyhgb 90.4 % (93.0-99.0); Arterial HCO3 21.6 mmol/L (22.0-26.0); Arterial MetHb 0.2 % (0.0-1.5); Arterial pCO2 33.2 mmhg (35-45); MODE NASAL CANNULA; Site LB
[2018-11-25] MEDS: ATORVASTATIN 40 MG TAB PO (21:05)
[2018-11-26] MEDS: hydrALAzine 20 MG INJ IV ×2 (01:23→11:56)
[2018-11-26] MEDS: ACCU-CHEK XX ×2 (02:00→23:32)
[2018-11-26 06:21] LABS: ADD MAN DIFF? NO
[2018-11-26 06:34] LABS: INR 1.09; PARTIAL THROMBOPLASTIN TIME 29.4 Sec (23.0-35.0); PROTIME 14.2 Sec (11.9-14.9); PT RATIO 1.1
[2018-11-26 06:36] LABS: BASOPHILS % 0.2 % (0.0-2.0); EOSINOPHILS % 0.1 % (0.0-7.0); HEMOGLOBIN 9.8 g/dl (12.0-16.0); LYMPHOCYTES # 1.2 10^3/ul (0.8-2.9); LYMPHOCYTES % 12.3 % (15.0-51.0); MEAN CORPUSCULAR HEMOGLOBIN 30.3 pg (29.0-33.0); MEAN CORPUSCULAR HGB CONC 32.7 g/dl (32.0-37.0); MEAN CORPUSCULAR VOLUME 92.9 fl (82.0-101.0); MEAN PLATELET VOLUME 10.7 fl (7.4-10.4); MONOCYTE # 1.1 10^3/ul (0.3-0.9); MONOCYTES % 10.5 % (0.0-11.0); NEUTROPHIL # 7.3 10^3/ul (1.6-7.5); NEUTROPHILS % 73.1 % (39.0-77.0); PLATELET COUNT 202 10^3/UL (140-415); RED BLOOD COUNT 3.23 10^6/ul (4.20-5.40); RED CELL DISTRIBUTION WIDTH 13.2 % (11.5-14.5)
[2018-11-26] MEDS: ONDANSETRON 4 MG INJ IV ×3 (06:55→23:46)
[2018-11-26] MEDS ORDERED: PROPOFOL 200 MG INJ (07:00)
[2018-11-26] MEDS ORDERED: CEFAZOLIN 1 GM/50 ML (PMX) IVPB (07:00)
[2018-11-26 07:17] LABS: ALANINE AMINOTRANSFERASE 26 IU/L (13-69); ALBUMIN 2.8 g/dl (3.3-4.9); ALBUMIN/GLOBULIN RATIO 1.21; ALKALINE PHOSPHATASE 84 IU/L (42-121); ANION GAP 11 (5-13); ASPARTATE AMINO TRANSFERASE 17 IU/L (15-46); BILIRUBIN,INDIRECT 0.3 mg/dl (0-1.1); BILIRUBIN,TOTAL 0.3 mg/dl (0.2-1.3); BLOOD UREA NITROGEN 72 mg/dl (7-20); CALCIUM 7.9 mg/dl (8.4-10.2); CARBON DIOXIDE 22 mmol/L (21-31); CHLORIDE 104 mmol/L (97-110); CREATININE 3.91 mg/dl (0.44-1.00); Estimated GFR 12 mL/min (>60); GLUCOSE 161 mg/dl (70-220); POTASSIUM 4.6 mmol/L (3.5-5.1); SODIUM 137 mmol/L (135-144); TOTAL PROTEIN 5.1 g/dl (6.1-8.1)
[2018-11-26] MEDS: INSULIN ASPART [NOVOLOG] 3 ML PEN SC ×4 (08:00→22:14)
[2018-11-26] MEDS: ALBUTEROL/IPRATROPIUM (NEB) 3 ML AMP HHN ×3 (08:04→19:51)
[2018-11-26] MEDS: BUDESONIDE (NEB) 0.5MG/2ML AMP HHN ×2 (08:05→19:51)
[2018-11-26] MEDS: FERROUS SULFATE (EC) 325 MG TAB PO ×2 (08:22→21:56)
[2018-11-26] MEDS: CITRIC ACID/NA CITRATE 30 ML CUP PO ×2 (08:22→21:56)
[2018-11-26] MEDS: predniSONE 20 MG TAB PO (08:23)
[2018-11-26] MEDS: DOCUSATE SODIUM 100 MG CAP PO ×2 (08:23→21:55)
[2018-11-26] MEDS: ZYVOX 600 MG TAB PO (08:23)
[2018-11-26] MEDS: INSULIN GLARGINE [LANTus] (100 UNITS/ML) SYG SC (08:26)
[2018-11-26] MEDS: MEROPENEM 500MG/50 ML (PMX) 50 ML IVPB (08:28)
[2018-11-26 08:49] LABS: MAGNESIUM 2.5 mg/dl (1.7-2.5)
[2018-11-26 08:49] LABS: PHOSPHORUS 5.7 mg/dl (2.5-4.9)
[2018-11-26] MEDS: SOD FERRIC GLUC COMPLX 125 MG in SOD CHLORIDE 0.9% 100 ML IVPB ×2 (13:00→19:41)
[2018-11-26] MEDS: LIDOCAINE 1% (MDV) 20 ML INJ ×2 (13:49→14:42)
[2018-11-26] MEDS: EPHEDrine 25 MG/5 ML SYG (14:42)
[2018-11-26] MEDS: PHENYLephrine (100 MCG/ML) 10ML SYG (14:42)
[2018-11-26] MEDS: PROPOFOL 40 ML (14:42)
[2018-11-26] MEDS: MIDAZOLAM 1 MG/ML 2 ML INJ (14:43)
[2018-11-26] MEDS: FENTAnyl 50 MCG/ML VIAL (14:43)
[2018-11-26] MEDS ORDERED: ONDANSETRON 4 MG INJ (14:55)
[2018-11-26] MEDS: HEPARIN 1000 UNITS/ML 10 ML INJ (15:21)
[2018-11-26] MEDS ORDERED: LABETALOL HCL 20MG INJ (15:56)
[2018-11-26] MEDS: LABETALOL HCL 20MG INJ IV (15:57)
[2018-11-26] MEDS ORDERED: OXYCODONE/ACETAMINOPHEN (5/325) TAB PO (16:00)
[2018-11-26] MEDS ORDERED: ONDANSETRON 4 MG INJ IV (16:00)
[2018-11-26] MEDS ORDERED: FENTAnyl 50 MCG/ML VIAL IV (16:00)
[2018-11-26] MEDS: EPOETIN 4000 UNITS/ML (NON ESRD/NON ONCOLOGY) SC (17:38)
[2018-11-26] MEDS: HEPARIN 1000 UNITS/ML 10 ML INJ CATHETER (21:51)
[2018-11-26] MEDS: ATORVASTATIN 40 MG TAB PO (21:56)
[2018-11-27 05:40] LABS: ADD MAN DIFF? NO
[2018-11-27 05:43] LABS: BASOPHILS % 0.2 % (0.0-2.0); EOSINOPHILS % 0.3 % (0.0-7.0); HEMATOCRIT 28.3 % (37.0-47.0); HEMOGLOBIN 9.4 g/dl (12.0-16.0); LYMPHOCYTES # 1.5 10^3/ul (0.8-2.9); MEAN CORPUSCULAR HEMOGLOBIN 30.7 pg (29.0-33.0); MEAN CORPUSCULAR HGB CONC 33.2 g/dl (32.0-37.0); MEAN CORPUSCULAR VOLUME 92.5 fl (82.0-101.0); MEAN PLATELET VOLUME 10.4 fl (7.4-10.4); MONOCYTE # 0.8 10^3/ul (0.3-0.9); MONOCYTES % 7.1 % (0.0-11.0); NEUTROPHILS % 77.7 % (39.0-77.0); PLATELET COUNT 142 10^3/UL (140-415); RED BLOOD COUNT 3.06 10^6/ul (4.20-5.40); RED CELL DISTRIBUTION WIDTH 13.1 % (11.5-14.5)
[2018-11-27 05:43] LABS: WHITE BLOOD COUNT 11.6 10^3/ul (4.8-10.8)
[2018-11-27 06:25] LABS: ALBUMIN 2.7 g/dl (3.3-4.9); ANION GAP 9 (5-13); BLOOD UREA NITROGEN 40 mg/dl (7-20); CALCIUM 7.8 mg/dl (8.4-10.2); CARBON DIOXIDE 26 mmol/L (21-31); CHLORIDE 100 mmol/L (97-110); CREATININE 2.49 mg/dl (0.44-1.00); GLUCOSE 79 mg/dl (70-220); MAGNESIUM 2.2 mg/dl (1.7-2.5); PHOSPHORUS 4.1 mg/dl (2.5-4.9); POTASSIUM 4.1 mmol/L (3.5-5.1); SODIUM 135 mmol/L (135-144)
[2018-11-27] MEDS: INSULIN ASPART [NOVOLOG] 3 ML PEN SC ×3 (08:00→17:51)
[2018-11-27] MEDS: ALBUTEROL/IPRATROPIUM (NEB) 3 ML AMP HHN ×3 (08:01→20:46)
[2018-11-27] MEDS: DOCUSATE SODIUM 100 MG CAP PO (08:49)
[2018-11-27] MEDS: predniSONE 20 MG TAB PO (08:49)
[2018-11-27] MEDS: FERROUS SULFATE (EC) 325 MG TAB PO (08:50)
[2018-11-27] MEDS: ONDANSETRON 4 MG INJ IV (08:56)
[2018-11-27] MEDS: INSULIN GLARGINE [LANTus] (100 UNITS/ML) SYG SC (09:00)
[2018-11-27] MEDS: BUDESONIDE (NEB) 0.5MG/2ML AMP HHN ×2 (09:23→20:47)
[2018-11-27] MEDS: SOD FERRIC GLUC COMPLX 125 MG in SOD CHLORIDE 0.9% 100 ML IVPB (12:56)
[2018-11-27] MEDS: HEPARIN 1000 UNITS/ML 10 ML INJ CATHETER (19:26)
== END 2018-11-27 21:07 | DRG 871 ==
LOC: E/R 10:04 → 6WM 13:23
PROVIDERS: Internal Medicine
PROC: 30233N1 Transfusion of Nonautologous Red Blood Cells into Peripheral Vein, Percutaneous Approach (ICD-10-PCS; 2018-11-20)
PROC: 0JH63XZ Insertion of Tunneled Vascular Access Device into Chest Subcutaneous Tissue and Fascia, Percutaneous Approach (ICD-10-PCS; principal; 2018-11-26)
PROC: 02H633Z Insertion of Infusion Device into Right Atrium, Percutaneous Approach (ICD-10-PCS; 2018-11-26)
PROC: B214YZZ Fluoroscopy of Right Heart using Other Contrast (ICD-10-PCS; 2018-11-26)
PROC: 5A1D70Z Performance of Urinary Filtration, Intermittent, Less than 6 Hours Per Day (ICD-10-PCS; 2018-11-26)
DX: A41.9 Sepsis, unspecified organism (principal); N17.0 Acute kidney failure with tubular necrosis; J96.01 Acute respiratory failure with hypoxia; I50.31 Acute diastolic (congestive) heart failure; J18.1 Lobar pneumonia, unspecified organism; M86.9 Osteomyelitis, unspecified; E87.2 Acidosis; J98.11 Atelectasis; I13.0 Hypertensive heart and chronic kidney disease with heart failure and stage 1 through stage 4 chronic kidney disease, or unspecified chronic kidney disease; N18.4 Chronic kidney disease, stage 4 (severe); D63.1 Anemia in chronic kidney disease; E11.22 Type 2 diabetes mellitus with diabetic chronic kidney disease; E11.69 Type 2 diabetes mellitus with other specified complication; E11.42 Type 2 diabetes mellitus with diabetic polyneuropathy; Z79.4 Long term (current) use of insulin
CPT/HCPCS: 36415; 36430; 36558; 36600; 71045; 71250; 73200; 76942; 78582; 80048; 80053; 80069; 80202; 81001; 81003; 82570; 82803; 82962; 83010; 83036; 83540; 83605; 83615; 83735; 83880; 84100; 84145; 84300; 84443; 84484; 85025; 85045; 85378; 85610; 85730; 86021; 86038; 86480; 86635; 86703; 86704; 86709; 86803; 86850; 86900; 86901; 86920; 87040; 87081; 87086; 87340; 87400; 87449; 89190; 90935; 93005; 93306; 93923; 93970; 93971; 94640; 94664; 96365; 96366; 96367; 99291-25

== ENCOUNTER 2019-01-01 13:34 | Emergency (ER) | payer OTHER, MEDICAID, MEDICARE ==
[2019-01-01 18:43] LABS: ADD MAN DIFF? NO
[2019-01-01 18:46] LABS: WHITE BLOOD COUNT 11.7 10^3/ul (4.8-10.8)
[2019-01-01 18:46] LABS: BASOPHIL # 0.1 10^3/ul (0.0-0.1); BASOPHILS % 0.6 % (0.0-2.0); EOSINOPHILS # 1.4 10^3/ul (0.0-0.5); EOSINOPHILS % 12.3 % (0.0-7.0); HEMATOCRIT 30.8 % (37.0-47.0); LYMPHOCYTES # 1.4 10^3/ul (0.8-2.9); LYMPHOCYTES % 12.2 % (15.0-51.0); MEAN CORPUSCULAR HEMOGLOBIN 32.3 pg (29.0-33.0); MEAN CORPUSCULAR HGB CONC 32.5 g/dl (32.0-37.0); MEAN CORPUSCULAR VOLUME 99.4 fl (82.0-101.0); MEAN PLATELET VOLUME 11.2 fl (7.4-10.4); MONOCYTE # 1.3 10^3/ul (0.3-0.9); NEUTROPHIL # 7.4 10^3/ul (1.6-7.5); NEUTROPHILS % 63.6 % (39.0-77.0); PLATELET COUNT 164 10^3/UL (140-415); RED CELL DISTRIBUTION WIDTH 15.3 % (11.5-14.5)
[2019-01-01] MEDS: IBUPROFEN 600 MG TAB PO (19:08)
[2019-01-01 19:19] LABS: ALANINE AMINOTRANSFERASE 39 IU/L (13-69); ALBUMIN 3.6 g/dl (3.3-4.9); ALKALINE PHOSPHATASE 134 IU/L (42-121); ANION GAP 9 (5-13); ASPARTATE AMINO TRANSFERASE 34 IU/L (15-46); BILIRUBIN,INDIRECT 0.4 mg/dl (0-1.1); BILIRUBIN,TOTAL 0.4 mg/dl (0.2-1.3); BLOOD UREA NITROGEN 55 mg/dl (7-20); C-REACTIVE PROTEIN 3.5 mg/dl (0.0-0.9); CALCIUM 7.9 mg/dl (8.4-10.2); CARBON DIOXIDE 27 mmol/L (21-31); CHLORIDE 99 mmol/L (97-110); Estimated GFR 10 mL/min (>60); GLUCOSE 75 mg/dl (70-220); LIPASE 32 U/L (23-300); POTASSIUM 3.9 mmol/L (3.5-5.1); SODIUM 135 mmol/L (135-144)
[2019-01-01 20:23] LABS: ERYTHROCYTE SEDIMENTATION RATE 30 mm/Hr (0-30)
== END 2019-01-01 21:40 | disposition home or self-care (01) ==
LOC: E/R 13:34
DX: S93.601A Unspecified sprain of right foot, initial encounter (principal); I12.0 Hypertensive chronic kidney disease with stage 5 chronic kidney disease or end stage renal disease; N18.6 End stage renal disease; I50.9 Heart failure, unspecified; E11.9 Type 2 diabetes mellitus without complications; R60.0 Localized edema; X58.XXXA Exposure to other specified factors, initial encounter; Y92.9 Unspecified place or not applicable; Z79.4 Long term (current) use of insulin
CPT/HCPCS: 36415; 73630; 80053; 83690; 85025; 85651; 86140; 93005; 99285-25

== ENCOUNTER 2019-01-07 11:59 | Emergency (ER) | payer OTHER ==
[2019-01-07 14:00] LABS: ADD MAN DIFF? NO
[2019-01-07 14:08] LABS: WHITE BLOOD COUNT 11.1 10^3/ul (4.8-10.8)
[2019-01-07 14:08] LABS: BASOPHIL # 0.1 10^3/ul (0.0-0.1); BASOPHILS % 0.8 % (0.0-2.0); EOSINOPHILS # 0.6 10^3/ul (0.0-0.5); EOSINOPHILS % 5.7 % (0.0-7.0); HEMATOCRIT 31.5 % (37.0-47.0); HEMOGLOBIN 10.6 g/dl (12.0-16.0); LYMPHOCYTES # 1.2 10^3/ul (0.8-2.9); LYMPHOCYTES % 11.2 % (15.0-51.0); MEAN CORPUSCULAR HEMOGLOBIN 32.3 pg (29.0-33.0); MEAN CORPUSCULAR HGB CONC 33.7 g/dl (32.0-37.0); MONOCYTE # 0.8 10^3/ul (0.3-0.9); MONOCYTES % 7.1 % (0.0-11.0); NEUTROPHILS % 72.2 % (39.0-77.0); PLATELET COUNT 185 10^3/UL (140-415); RED BLOOD COUNT 3.28 10^6/ul (4.20-5.40); RED CELL DISTRIBUTION WIDTH 14.3 % (11.5-14.5)
[2019-01-07 14:38] LABS: ALANINE AMINOTRANSFERASE 34 IU/L (13-69); ALBUMIN 3.2 g/dl (3.3-4.9); ALBUMIN/GLOBULIN RATIO 1.39; ALKALINE PHOSPHATASE 151 IU/L (42-121); ANION GAP 9 (5-13); ASPARTATE AMINO TRANSFERASE 30 IU/L (15-46); BILIRUBIN,INDIRECT 0.3 mg/dl (0-1.1); BILIRUBIN,TOTAL 0.3 mg/dl (0.2-1.3); BLOOD UREA NITROGEN 38 mg/dl (7-20); CALCIUM 7.4 mg/dl (8.4-10.2); CARBON DIOXIDE 32 mmol/L (21-31); CHLORIDE 92 mmol/L (97-110); Estimated GFR 12 mL/min (>60); GLUCOSE 80 mg/dl (70-220); LIPASE 10 U/L (23-300); POTASSIUM 3.1 mmol/L (3.5-5.1); SODIUM 133 mmol/L (135-144); TOTAL PROTEIN 5.5 g/dl (6.1-8.1)
[2019-01-07] MEDS: POTASSIUM CHLORIDE (SR) 10 MEQ TAB PO (16:20)
[2019-01-07] MEDS: HYDROCODONE/APAP (5/325) TAB PO (16:43)
[2019-01-07] MEDS: ONDANSETRON (ODT) 4 MG TAB ODT (16:43)
== END 2019-01-07 16:47 | disposition home or self-care (01) ==
LOC: E/R 11:59
DX: E87.6 Hypokalemia (principal); D64.9 Anemia, unspecified; N18.6 End stage renal disease; E11.22 Type 2 diabetes mellitus with diabetic chronic kidney disease; I13.2 Hypertensive heart and chronic kidney disease with heart failure and with stage 5 chronic kidney disease, or end stage renal disease; I50.9 Heart failure, unspecified; Z79.4 Long term (current) use of insulin; Z99.2 Dependence on renal dialysis
CPT/HCPCS: 36415; 71045; 80053; 83690; 85025; 93005; 99285-25